=== PATIENT | female | born 1990 ===

== ENCOUNTER 2017-07-21 10:01 | Emergency (ER) | payer BC ==
[2017-07-21 10:08] VITALS: BP 133/84; PULSE 88; RESP 19; TEMP 98.5; O2SAT 100
[2017-07-21] MEDS ORDERED: Sodium Chloride 0.9% 1,000 ML IV STA (10:46)
--- NOTE | 2017-07-21 11:10 | ED PDOC ---
HPI: Abdomen Time Seen by Provider: 07/21/17 10:45 Chief Complaint (Nursing): Abdominal Pain Chief Complaint (Provider): abdominal pain, nausea History Per: Patient History/Exam Limitations: no limitations Onset/Duration Of Symptoms: Days (2), Gradual Current Symptoms Are (Timing): Still Present Context: Food Severity: Moderate Location Of Pain/Discomfort: RLQ, Periumbilical Quality Of Discomfort: Aching Associated Symptoms: Nausea, Loss Of Appetite. denies: Vomiting, Diarrhea, Back Pain, Constipation, Urinary Symptoms Exacerbating Factors: None Alleviating Factors: None Last Bowel Movement: Yesterday Additional Complaint(s): 26yo female c/o lower abdominal pain radiating to the right side, started 2 nights ago, associated with nausea, loss of appetite. She had a normal BM yesterday. Denies blood in stool, vomiting or fever. Abnormal Vaginal Bleeding: No : 0 Past Medical History Reviewed: Historical Data, Nursing Documentation, Vital Signs Vital Signs: Last Vital Signs Temp 98.5 F 07/21/17 10:08 Pulse 88 07/21/17 10:08 Resp 19 07/21/17 10:08 BP 133/84 07/21/17 10:08 Pulse Ox 100 07/21/17 11:30 - Medical History PMH: Hypothyroidism - Surgical History Other surgeries: corneal transplant, gastric bypass 3yrs ago - Family History Family History: States: Unknown Family Hx - Social History Current smoker - smoking cessation education provided: No - Home Medications Home Medications: Ambulatory Orders Medication Instructions Recorded Dicyclomine [Dicyclomine HCl] 10 mg PO TID PRN #12 cap 07/21/17 Naproxen [Naprosyn] 500 mg PO BID PRN #14 tablet 07/21/17 Ondansetron [Zofran] 4 mg PO Q6H PRN #10 tab 07/21/17 - Allergies Allergies/Adverse Reactions: Allergies Allergy/AdvReac Type Severity Reaction Status Date / Time latex Allergy RASH Verified 07/21/17 10:34 Review of Systems ROS Statement: Except As Marked, All Systems Reviewed And Found Negative Constitutional: Negative for: Fever, Chills ENT: Negative for: Throat Pain Cardiovascular: Negative for: Chest Pain Respiratory: Negative for: Cough Gastrointestinal: Positive for: Nausea, Abdominal Pain. Negative for: Diarrhea , Constipation, Melena, Hematochezia, Hematemesis Genitourinary Female: Negative for: Dysuria Musculoskeletal: Negative for: Neck Pain Skin: Negative for: Rash, Lesions, Jaundice Neurological: Negative for: Weakness, Numbness, Headache Psych: Negative for: Suicidal ideation Physical Exam - Reviewed Nursing Documentation Reviewed: Yes Vital Signs Reviewed: Yes - Physical Exam Appears: Positive for: Well, Non-toxic, No Acute Distress Head Exam: Positive for: ATRAUMATIC, NORMAL INSPECTION, NORMOCEPHALIC Skin: Positive for: Normal Color, Warm, DRY Eye Exam: Positive for: EOMI, Normal appearance, PERRL ENT: Positive for: Normal ENT Inspection Neck: Positive for: Normal, Painless ROM Cardiovascular/Chest: Positive for: Regular Rate, Rhythm Respiratory: Positive for: CNT, Normal Breath Sounds Gastrointestinal/Abdominal: Positive for: Soft, Tenderness (RLQ and periumbilical tenderness). Negative for: Guarding, Rebound Back: Positive for: Normal Inspection Extremity: Positive for: Normal ROM Neurologic/Psych: Positive for: Alert, Oriented. Negative for: Motor/Sensory Deficits - Laboratory Results Result Diagrams: 07/21/17 11:40 07/21/17 11:40 Urine POC: Negative Urine dip results: Negative for: Leukocyte Esterase - ECG O2 Sat by Pulse Oximetry: 100 Medical Decision Making Medical Decision Making: workup for abd pain initiated labs, CT abd pelv r/o appendicitis, colitis, vs other IVF, analgesia and antiemetic ordered UPreg neg Following the intravenous administration of iodinated contrast material, a CT examination of the abdomen and pelvis performed from the domes of the diaphragms to the symphysis pubis with reformatted datasets provided not only axial but also sagittal and coronal planes. Oral contrast was not administered as per referring physician request. Contrast dose: Omnipaque 300, 95 cc Radiation dose: Total exam DLP = 635.8 mGy-cm. This CT exam was performed using one or more of the following dose reduction techniques: Automated exposure control, adjustment of the mA and/or kV according to patient size, and/or use of iterative reconstruction technique. FINDINGS: LOWER THORAX: Unremarkable. LIVER: Unremarkable. No gross lesion or ductal dilatation. GALLBLADDER AND BILE DUCTS: Unremarkable. PANCREAS: Unremarkable. No gross lesion or ductal dilatation. SPLEEN: Unremarkable. ADRENALS: Unremarkable. No mass. KIDNEYS AND URETERS: Unremarkable. No hydronephrosis. No solid mass. VASCULATURE: Unremarkable. No aortic aneurysm. BOWEL: The stomach is collapsed with postoperative changes suggestive of probable prior gastric sleeve surgery also noted. . Lack oral contrast limits evaluation the bowel. Limited retained fecal material seen throughout various large-bowel segments with the large and small bowel appearing limited in dilatation if not collapsed. This limits evaluation of the large bowel bhatt, particularly the transverse colon. APPENDIX: Normal appendix. PERITONEUM: Unremarkable. No free fluid. No free air. LYMPH NODES: Unremarkable. No enlarged lymph nodes. BLADDER: Unremarkable. REPRODUCTIVE: Trace fluid seen the right adnexal compartment as well as the cul-de-sac of uncertain origin. Consider potential adnexal cyst rupture though none is clearly identified at this time. BONES: No acute fracture. OTHER FINDINGS: None. IMPRESSION: 1. No CT evidence of appendicitis. The appendix appears within normal limits grossly. 2. Large bowel is limited evaluation as well small-bowel due lack of oral contrast administration and collapse of numerous segments throughout the abdomen. No local mesenteric reaction is appreciate that would indicate definite colitis. Transverse colon in particular is difficult to evaluate due to collapse and limited retained fecal material. Potential colitis is poorly evaluated. 3. Trace right adnexal fluid is seen as well as in the cul-de-sac of uncertain origin. A ruptured ovarian cyst is a possibility, though no definite adnexal cysts are appreciated bilaterally at this time. US obtained pt improved over course ED stay, tolerated PO. DC w naprosyn, zofran and bentyl. Followup PMD and OB/ GI in next 3-5 days. Return to ER for any worse or new symptoms. Disposition - Clinical Impression Clinical Impression: Abdominal pain - Patient ED Disposition Is Patient to be Admitted: No Counseled Patient/Family Regarding: Studies Performed, Diagnosis, Need For Followup, Rx Given - Disposition Referrals: Jesus Roy MD, PhD [Staff Provider] - Perri Lilly [Family Provider] - Disposition: Routine/Home Disposition Time: 14:30 Condition: STABLE Additional Instructions: See your primary doctor and gastroenterology in next few days if symptoms persist. Return to ER for any worse or new pain. Drink plenty of fluids. Avoid dairy, spicy or fried foods for one week. Prescriptions: Dicyclomine [Dicyclomine HCl] 10 mg PO TID PRN #12 cap PRN Reason: Gi Distress Naproxen [Naprosyn] 500 mg PO BID PRN #14 tablet PRN Reason: Pain, Moderate (4-7) Ondansetron [Zofran] 4 mg PO Q6H PRN #10 tab PRN Reason: Nausea/Vomiting Instructions: Acute Abdomen (Belly Pain), Adult (DC) Forms: [facility] (Irish)
[2017-07-21 12:09] LABS: BASO % 0.2 % (0.0-2.0); EOS % 0.4 % (0.0-4.0); HEMOGLOBIN 13.3 g/dL (12.0-16.0); LYMPH # 0.9 K/uL (1.0-4.3); LYMPH % 18.8 % (20.0-40.0); MEAN CELL VOLUME 92.6 fl (81.0-99.0); MEAN CORPUSCULAR HEMOGLOBIN 32.1 pg (27.0-31.0); MEAN CORPUSCULAR HGB CONC 34.7 g/dL (33.0-37.0); MEAN PLATELET VOLUME 9.1 fl (7.2-11.7); MONO # 0.4 K/uL (0.0-0.8); MONO % 7.4 % (0.0-10.0); NEUT # 3.6 K/uL (1.8-7.0); NEUT % 73.2 % (50.0-75.0); NRBC % 0.2 % (0.0-0.0); RBC 4.13 Mil/uL (3.80-5.20); RED CELL DISTRIBUTION WIDTH 12.6 % (11.5-14.5); WHITE BLOOD COUNT 4.9 K/uL (4.8-10.8)
[2017-07-21 12:22] LABS: ALB/GLOB RATIO 1.2 (1.0-2.1); ALBUMIN 3.9 g/dL (3.5-5.0); ALT/SGPT 29 U/L (9-52); AST/SGOT 24 U/L (14-36); BLOOD UREA NITROGEN 11 mg/dl (7-17); CALCIUM 9.1 mg/dL (8.4-10.2); GFR AFRICAN-AMERICAN > 60; GFR NON-AFRICAN AMERICAN > 60; LIPASE 54 U/L (23-300)
[2017-07-21] MEDS ORDERED: Iohexol 300 100 ML IJ ONE (12:55)
[2017-07-21] MEDS ORDERED: Sodium Chloride 0.9% 100 ML ONE (12:55)
--- NOTE | 2017-07-21 14:20 | CT ---
PROCEDURE: CT Abdomen and Pelvis with contrast HISTORY: RLQ pain, nausea COMPARISON: None. TECHNIQUE: Following the intravenous administration of iodinated contrast material, a CT examination of the abdomen and pelvis performed from the domes of the diaphragms to the symphysis pubis with reformatted datasets provided not only axial but also sagittal and coronal planes. Oral contrast was not administered as per referring physician request. Contrast dose: Omnipaque 300, 95 cc Radiation dose: Total exam DLP = 635.8 mGy-cm. This CT exam was performed using one or more of the following dose reduction techniques: Automated exposure control, adjustment of the mA and/or kV according to patient size, and/or use of iterative reconstruction technique. FINDINGS: LOWER THORAX: Unremarkable. LIVER: Unremarkable. No gross lesion or ductal dilatation. GALLBLADDER AND BILE DUCTS: Unremarkable. PANCREAS: Unremarkable. No gross lesion or ductal dilatation. SPLEEN: Unremarkable. ADRENALS: Unremarkable. No mass. KIDNEYS AND URETERS: Unremarkable. No hydronephrosis. No solid mass. VASCULATURE: Unremarkable. No aortic aneurysm. BOWEL: The stomach is collapsed with postoperative changes suggestive of probable prior gastric sleeve surgery also noted. . Lack oral contrast limits evaluation the bowel. Limited retained fecal material seen throughout various large-bowel segments with the large and small bowel appearing limited in dilatation if not collapsed. This limits evaluation of the large bowel bhatt, particularly the transverse colon. APPENDIX: Normal appendix. PERITONEUM: Unremarkable. No free fluid. No free air. LYMPH NODES: Unremarkable. No enlarged lymph nodes. BLADDER: Unremarkable. REPRODUCTIVE: Trace fluid seen the right adnexal compartment as well as the cul-de-sac of uncertain origin. Consider potential adnexal cyst rupture though none is clearly identified at this time. BONES: No acute fracture. OTHER FINDINGS: None. IMPRESSION: 1. No CT evidence of appendicitis. The appendix appears within normal limits grossly. 2. Large bowel is limited evaluation as well small-bowel due lack of oral contrast administration and collapse of numerous segments throughout the abdomen. No local mesenteric reaction is appreciate that would indicate definite colitis. Transverse colon in particular is difficult to evaluate due to collapse and limited retained fecal material. Potential colitis is poorly evaluated. 3. Trace right adnexal fluid is seen as well as in the cul-de-sac of uncertain origin. A ruptured ovarian cyst is a possibility, though no definite adnexal cysts are appreciated bilaterally at this time.
--- NOTE | 2017-07-21 16:44 | US ---
HISTORY: Lower abdominal pain 3 days duration, fluid in cul-de-sac on CT Menstrual status: LMP 07/09/2017. Seven goals are regular. COMPARISON: Abdomen and pelvis July 21, 2017. TECHNIQUE: Transabdominal, transvaginal. Real -time technique with 2D, duplex and color Doppler. FINDINGS: UTERUS: Measures 3.4 x 5.2 x 7.5 cm. Normal in size and appearance. No fibroid or other mass lesion seen. ENDOMETRIUM: Measures 5.6 mm in diameter. No ultrasound findings to suggest gestational sac, fluid, debris, mass or polyp or other pathologic process within the endometrium. CERVIX: No cervical abnormality identified. RIGHT OVARY: Measures 1.4 x 2.3 x 1.7 cm. No solid mass. Normal flow. Sub cm complex cyst/follicle LEFT OVARY: Measures 1.1 x 2.2 cm. No solid mass. Normal flow. FREE FLUID: Trace free fluid identified in the pelvis/cul de sac. OTHER FINDINGS: None. IMPRESSION: No significant or acute findings to account for/ related to the clinical presentation. Confirmation of trace fluid in the cul-de-sac identified on recent CT scan
== END 2017-07-21 17:31 | disposition home or self-care (01) ==
LOC: H.ER 10:01
DX: R10.9 Unspecified abdominal pain (principal); Z98.84 Bariatric surgery status; E03.9 Hypothyroidism, unspecified
CPT/HCPCS: 74177; 76830; 76856; 80053; 81025; 83690; 85025; 96374; 96375; 99284; J1885; J2405; J7040; Q9967